=== PATIENT | male | born 1945 | race Caucasian/White ===

== ENCOUNTER 2018-05-02 14:00 | Emergency (ER) | payer MEDICARE, MEDICAID ==
[~2018-05-02] VITALS: Ht 172.7 cm; Wt 77.1 kg
--- NOTE | 2018-05-02 14:19 | NUR ---
PATIENT WAS MSE BY DR WEBER IN ROOM 03A
[2018-05-02] MEDS ORDERED: CLOP75TA15 PO (14:26)
[2018-05-02] MEDS ORDERED: METF-440 PO (14:26)
--- NOTE | 2018-05-02 14:26 | NUR ---
PT STATES HE IS UNABLE TO REMEMBER REST OF MEDICATIONS AT THIS TIME.
[2018-05-02 14:42] LABS: BASOPHILS # (AUTO) 0.1 K/uL (0.0-8.0); BASOPHILS % (AUTO) 1.1 % (0.0-2.0); EOSINOPHILS # (AUTO) 0.1 K/uL (0.0-0.7); EOSINOPHILS % (AUTO) 0.8 % (0.0-7.0); HEMATOCRIT 48.8 % (36.7-47.1); HEMOGLOBIN 16.1 g/dL (12.5-16.3); LYMPHOCYTES # (AUTO) 3.1 K/uL (20.0-40.0); LYMPHOCYTES % (AUTO) 33.1 % (20.5-51.5); MEAN CORPUSCULAR HEMOGLOBIN 29.4 uug (23.8-33.4); MEAN CORPUSCULAR HGB CONC 33 g/dL (32.5-36.3); MEAN CORPUSCULAR VOLUME 88.9 fL (73.0-96.2); MONOCYTES # (AUTO) 0.8 K/uL (2.0-10.0); MONOCYTES % (AUTO) 8.5 % (0.0-11.0); NEUTROPHILS # (AUTO) 5.3 K/uL (1.8-8.9); NEUTROPHILS % (AUTO) 56.5 % (38.5-71.5); PLATELET COUNT (AUTO) 212 K/uL (152-348); RED BLOOD CELL COUNT(AUTO) 5.49 MIL/uL (4.06-5.63); WHITE BLOOD COUNT (AUTO) 9.4 K/uL (3.6-10.2)
[2018-05-02 14:47] LABS: CREATININE 1.4 mg/dL (0.6-1.3); POTASSIUM 4.2 mmol/L (3.5-5.1)
[2018-05-02] MEDS ORDERED: LISI2.5T2 PO (14:47)
[2018-05-02] MEDS ORDERED: ROSU20TA PO (14:47)
[2018-05-02] MEDS ORDERED: CELE200C PO (14:47)
[2018-05-02] MEDS ORDERED: METO25TA6 PO (14:47)
--- NOTE | 2018-05-02 15:03 | NUR ---
Wrter assumes care. Patient is AOx4, calm & breathing easily, pending results and disposition, NAD.
--- NOTE | 2018-05-02 16:00 | NUR ---
Patient discharged to home in stable conditon & brisk steady gait. Written and verbal after care instructions given to patient and spouse. Patient verbalizes understanding of instructions. Copies of all diagnostic tests given to patient.
== END 2018-05-02 16:01 | disposition home or self-care (01) ==
LOC: ER 14:00
DX: S09.90XA Unspecified injury of head, initial encounter (principal); R55 Syncope and collapse; I10 Essential (primary) hypertension; E11.9 Type 2 diabetes mellitus without complications; F17.200 Nicotine dependence, unspecified, uncomplicated; Z95.1 Presence of aortocoronary bypass graft; Z90.49 Acquired absence of other specified parts of digestive tract; Z79.01 Long term (current) use of anticoagulants; Z79.84 Long term (current) use of oral hypoglycemic drugs; W19.XXXA Unspecified fall, initial encounter; Y93.89 Activity, other specified; Y92.89 Other specified places as the place of occurrence of the external cause; Y99.8 Other external cause status
CPT/HCPCS: 36415; 70030-TC; 70450; 71045; 85025; 85730; 93005; A4663